=== PATIENT | male | born 1965 | race American Indian/Alaskan Native ===

== ENCOUNTER 2016-05-21 20:14 | Emergency (ER) | payer OTHER, BC ==
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
[2016-05-21] MEDS ORDERED: MOTRIN PO ONE (22:34)
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
[2016-05-22 00:33] LABS: Alanine Aminotransferase 17 units/L (7-56); Albumin 3.9 g/dL (3.9-5); Albumin/Globulin Ratio 1.3 %; Alkaline Phosphatase 56 units/L (35-129); Anion Gap 16 mmol/L; Basophils % (Auto) 0.4 % (0.0-1.8); Bilirubin,Total 0.3 mg/dL (0.1-1.2); Blood Urea Nitrogen 18 mg/dL (9-20); Calcium 9.2 mg/dL (8.4-10.2); Carbon Dioxide 25 mmol/L (22-30); Chloride 99.4 mmol/L (98-107); Eosinophils % (Auto) 2.8 % (0.0-4.3); Glucose 428 mg/dL (75-100); Hematocrit 39.4 % (35.5-45.6); Hemoglobin 12.8 gm/dl (11.8-15.2); Lipase 76 units/L (13-60); Mean Corpuscular HGB Conc 33 % (32-34); Mean Corpuscular Volume 79 fl (84-94); Platelet Count 283 K/mm3 (140-440); Potassium 4.2 mmol/L (3.6-5.0); Red Blood Count 4.98 M/mm3 (3.65-5.03); Red Cell Distribution Width 13.5 % (13.2-15.2); Sodium 136 mmol/L (137-145); Total Protein 6.8 g/dL (6.3-8.2); White Blood Count 8.7 K/mm3 (4.5-11.0)
[2016-05-22 00:36] LABS: Mean Corpuscular Hemoglobin 26 pg (28-32)
[2016-05-22] MEDS ORDERED: NACL 0.9% 1000 ML 1,000 ML IV ONE (00:53)
[2016-05-22 01:38] LABS: Bilirubin,Urine NEG (Negative); Blood,Urine SM (Negative); Ketones,Urine NEG (Negative); Leukocyte Esterase,Urine NEG (Negative); Nitrite,Urine NEG (Negative); Protein,Urine <15 mg/dL mg/dL (Negative); Urobilinogen,Urine < 2.0 mg/dL (<2.0)
[2016-05-22 02:56] VITALS: BP 145/92
[2016-05-22 05:38] LABS: Lactate Dehydrogenase 158 units/L (91-180)
== END 2016-05-22 02:57 | disposition home or self-care (01) ==
LOC: ED 20:14
DX: M54.5 Low back pain (principal); M79.1 Myalgia; E11.9 Type 2 diabetes mellitus without complications; I10 Essential (primary) hypertension; V43.52XA Car driver injured in collision with other type car in traffic accident, initial encounter; Y92.488 Other paved roadways as the place of occurrence of the external cause; Y93.89 Activity, other specified; Y99.8 Other external cause status
CPT/HCPCS: 36415; 80053; 81001; 82010; 82962; 83615; 83690; 85025; 96361; 96374; 99283; J7030; 80074; J1815